=== PATIENT | female | born 1965 | race Caucasian/White ===

== ENCOUNTER 2024-12-22 09:18 | Outpatient (CLI) | payer OTHER, MEDICAID, SELFPAY ==
--- NOTE | 2024-12-22 09:27 | MR_ITS ---
WS: [id number] MRI BRAIN WITH AND WITHOUT CONTRAST HISTORY: MULTIPLE BRAIN LESIONS AND MEMORY LOSS COMPARISON: None available. TECHNIQUE: Multiplanar imaging performed through the brain with MultiHance 20 ml's IV. No acute infarcts are seen. Odell-white matter differentiation is well preserved. Mild bifrontal lobe atrophy. Normal hippocampal formations. No prior infarct. No significant small vessel disease. No susceptibility artifacts or prior lacunar infarcts. Ventricles and extra-axial spaces are normal. Clivus and pituitary gland are normal. Visualized posterior fossa and brainstem are also normal. Postcontrast images are negative for masses or vascular malformations. Dural venous sinuses are normal. Paranasal sinuses: Well aerated with no significant disease. Mastoid air cells: Normal. Calvarium and scalp: Normal. MR/MR head wo/w con [id number] IMPRESSION: 1. No acute or remote infarcts. 2. Mild bifrontal lobe atrophy. 3. Normal hippocampal formations. 4. No enhancing masses or vascular malformations.
[2024-12-22] MEDS: gadobenate dimeglumine 20 mL vial IV (10:07)
== END 2024-12-22 09:19 | disposition home or self-care (01) ==
PROVIDERS: Visit Provider Specialist
DX: G31.84 Mild cognitive impairment of uncertain or unknown etiology (principal); G31.89 Other specified degenerative diseases of nervous system
CPT/HCPCS: 70553; A9577